=== PATIENT | male | born 1935 | race Caucasian/White ===

== ENCOUNTER → 2016-10-04 | Outpatient (CLI) | payer MEDICARE ==
[2016-10-04 18:37] LABS: ALT 34 U/L (21-72); AST 27 U/L (17-59); Cholesterol 183 mg/dL (<200); HDL Cholesterol 53 mg/dL (40-60); Triglycerides 130 mg/dL (<150)
== END | disposition home or self-care (01) ==
LOC: MMGSC 10:33
PROVIDERS: ATTEND Internal Medicine Interventional Cardiology
DX: E78.2 Mixed hyperlipidemia (principal)
CPT/HCPCS: 36415; 80061; 84450; 84460

== ENCOUNTER → 2017-03-29 | Outpatient (CLI) | payer MEDICARE ==
[2017-03-29 19:08] LABS: ALT 34 U/L (21-72); AST 24 U/L (17-59); Alkaline Phosphatase 82 U/L (38-126); Anion Gap 9 mmol/L; Blood Urea Nitrogen 12 mg/dL (9-20); Calcium 8.8 mg/dL (8.4-10.2); Carbon Dioxide 25 mmol/L (22-30); Chloride 107 mmol/L (98-107); Cholesterol 139 mg/dL (<200); Glucose 103 mg/dL (74-99); HDL Cholesterol 45 mg/dL (40-60); Non-African American GFR(MDRD) >60 (>60 ml/min/1.73 sqM); Potassium 3.7 mmol/L (3.5-5.1); Sodium 141 mmol/L (137-145); Total Bilirubin 0.5 mg/dL (0.2-1.3); Total Protein 6.6 g/dL (6.3-8.2)
== END | disposition home or self-care (01) ==
LOC: MMGSC 10:24
PROVIDERS: ATTEND Internal Medicine Interventional Cardiology
DX: E78.2 Mixed hyperlipidemia (principal)
CPT/HCPCS: 36415; 80053; 80061

== ENCOUNTER → 2017-03-29 | Outpatient (CLI) | payer MEDICARE | END | disposition home or self-care (01) | LOC: MMGSC 10:31 | PROVIDERS: ATTEND Family Medicine | DX: N40.0 Benign prostatic hyperplasia without lower urinary tract symptoms (principal); E78.2 Mixed hyperlipidemia; Z12.5 Encounter for screening for malignant neoplasm of prostate | CPT/HCPCS: 84439; 84443; G0103; 36415; 80053; 80061 ==

== ENCOUNTER → 2017-10-17 | Outpatient (CLI) | payer MEDICARE ==
[2017-10-17 18:30] LABS: ALT 25 U/L (21-72); AST 22 U/L (17-59); Albumin 3.9 g/dL (3.5-5.0); Alkaline Phosphatase 87 U/L (38-126); Anion Gap 11 mmol/L; Blood Urea Nitrogen 12 mg/dL (9-20); Calcium 9.3 mg/dL (8.4-10.2); Carbon Dioxide 24 mmol/L (22-30); Chloride 106 mmol/L (98-107); Glucose 124 mg/dL (74-99); Sodium 141 mmol/L (137-145); Total Bilirubin 0.8 mg/dL (0.2-1.3); Total Protein 6.8 g/dL (6.3-8.2)
== END | disposition home or self-care (01) ==
LOC: MMGSC 09:25
PROVIDERS: ATTEND Family Medicine
DX: I10 Essential (primary) hypertension (principal); N40.0 Benign prostatic hyperplasia without lower urinary tract symptoms; Z12.5 Encounter for screening for malignant neoplasm of prostate
CPT/HCPCS: 80053; 36415; G0103

== ENCOUNTER → 2017-10-17 | Outpatient (CLI) | payer MEDICARE ==
[2017-10-17 18:30] LABS: Cholesterol 171 mg/dL (<200); HDL Cholesterol 54 mg/dL (40-60); LDL Cholesterol,Calculated 89 mg/dL (0-99); Triglycerides 140 mg/dL (<150)
== END | disposition home or self-care (01) ==
LOC: MMGSC 09:28
PROVIDERS: ATTEND Internal Medicine Interventional Cardiology
DX: E78.2 Mixed hyperlipidemia (principal)
CPT/HCPCS: 80061

== ENCOUNTER → 2018-04-30 | Outpatient (CLI) | payer MEDICARE ==
[2018-04-30 11:05] LABS: ALT 29 U/L (21-72); AST 20 U/L (17-59); Albumin 3.9 g/dL (3.5-5.0); Alkaline Phosphatase 78 U/L (38-126); Anion Gap 7 mmol/L; Blood Urea Nitrogen 15 mg/dL (9-20); Calcium 9.2 mg/dL (8.4-10.2); Carbon Dioxide 25 mmol/L (22-30); Chloride 108 mmol/L (98-107); Cholesterol 168 mg/dL (<200); Glucose 116 mg/dL (74-99); HDL Cholesterol 48 mg/dL (40-60); LDL Cholesterol,Calculated 97 mg/dL (0-99); Potassium 3.7 mmol/L (3.5-5.1); Sodium 140 mmol/L (137-145); Total Bilirubin 0.6 mg/dL (0.2-1.3); Total Protein 6.7 g/dL (6.3-8.2); Triglycerides 115 mg/dL (<150)
[2018-04-30 16:34] LABS: Hemoglobin A1C 5.7 % (4.0-6.0)
== END | disposition home or self-care (01) ==
LOC: LABWHC1 09:18
PROVIDERS: ATTEND Internal Medicine Interventional Cardiology
DX: E78.2 Mixed hyperlipidemia (principal); R73.9 Hyperglycemia, unspecified
CPT/HCPCS: 36415; 80053; 80061; 83036